=== PATIENT | male | born 1965 | race Caucasian/White ===

== ENCOUNTER → 2018-03-28 | Outpatient (CLI) | payer OTHER ==
[~2018-03-28] MED LIST: CALC1TAB32 PO; FLAV100L PO; GLUC-125 PO; INDO-21 PO; KET10 PO; MAGN250T26 PO; MULT-1335 PO; MULT-775 PO; OMEG10007; PER PO; VITA-175 PO
[2018-03-28 09:26] LABS: PLATELET COUNT, AUTOMATED 177 K/uL (150-450)
--- NOTE | 2018-03-28 09:58 | RADIOLOGY IMAGING REPORT ---
FACILITY: PATIENT NAME: Armando Isabel : 1965 MR: [id number] V: [id number] EXAM DATE: ORDERING PHYSICIAN: SATNAM PRESTON TECHNOLOGIST: Location: [facility] [place] Patient: Armando Isabel : 1965 Visit/Account:[id number] Date of Sevice: 03/28/2018 EXAMINATION: Renal ultrasound HISTORY: AAA screening Following aortic measurements obtained. Suprarenal aorta 1.8 x 2.0 cm Superior infrarenal 2.4 x 2.3 cm Mid infrarenal 1.9 x 1.9 cm Inferior infrarenal 1.9 x 1.7 cm Right common iliac 0.85 cm Left common iliac 1.3 cm IMPRESSION: 1. Negative ultrasound for abdominal aortic aneurysm. 2. Mildly ectatic left common iliac artery Report Dictated By: Zbigniew Stock MD at 03/28/2018 9:53 AM Report E-Signed By: Zbigniew Stock MD at 03/28/2018 9:55 AM WSN:[email or web address]
[2018-03-28 10:34] LABS: LDL CHOLESTEROL 134 mg/dl
== END ==
LOC: US 07:02
PROVIDERS: ATTEND Internal Medicine
DX: M10.9 Gout, unspecified (principal); Z82.49 Family history of ischemic heart disease and other diseases of the circulatory system; Z00.00 Encounter for general adult medical examination without abnormal findings
CPT/HCPCS: 36415; 81001; 82040; 82247; 82310; 82374; 82435; 82465; 82565; 82947; 83718; 84075; 84132; 84153; 84155; 84295; 84443; 84450; 84460; 84478; 84520; 84550; 85025; 93979